=== PATIENT | male | born 1945 | race African-American/Black ===

== ENCOUNTER 2017-07-08 11:44 | Inpatient (IN) ==
[2017-07-08] MEDS ORDERED: ACETAMINOPHEN 325 MG TABLET PO PRN (12:37)
[2017-07-08] MEDS ORDERED: BISACODYL 5 MG TABLET PO PRN (12:37)
[2017-07-08] MEDS ORDERED: HYDROmorphone 2 MG/1 ML VIAL IV PRN (12:37)
[2017-07-08] MEDS ORDERED: DEXTROSE 50% 25 GM/50 ML VIAL IV PRN (12:37)
[2017-07-08] MEDS ORDERED: ALUMINUM/MAGNES/SIMETH MAX STR 30 ML UDCUP PO PRN (12:37)
[2017-07-08] MEDS ORDERED: ONDANSETRON 4 MG/2 ML VIAL IV PRN (12:37)
[2017-07-08] MEDS ORDERED: GLUCAGON 1 MG VIAL IM PRN (12:37)
[2017-07-08 14:24] LABS: Basophils % 0.2 % (0.0-0.8); Eosinophils # 0.1 10*3/uL (0.0-0.87); Hematocrit 30.3 VOL% (42.0-52.0); Hemoglobin 9.2 GM/DL (14.0-18.0); Immature Granulocytes % 1.1 %; Immature Granulocytes Absolute 0.07 #; Lymphocytes # 0.5 10*3/uL (1.4-4.0); Lymphocytes % 8.9 % (21.2-54.2); Mean Corpuscular HGB Conc 30.4 GM/DL (32-36); Mean Corpuscular Hemoglobin 31 PG (27-34); Mean Platelet Volume 11.1 FL (9.6-12.0); Monocytes # 0.6 10*3/uL (0.11-0.8); Monocytes % 10.2 % (1.7-12.7); NRBC # 0.06 10*3/uL; Neutrophils # 4.8 10*3/uL (1.4-7.4); Neutrophils % 78.6 % (38.7-73.9); Platelet Count 218 T/CUMM (130-400); Red Cell Distribution Width 19.2 % (9.3-17.3); White Blood Count 6.1 T/CUMM (4-12)
[2017-07-08 14:42] LABS: Bilirubin,Total 0.4 MG/DL (0.2-1.0); Calcium 8.5 MG/DL (8.5-10.1); Potassium 5.3 MMOL/L (3.5-5.1); Total Protein 7.3 G/DL (6.4-8.3)
[2017-07-08] MEDS ORDERED: SKIN HEALING OINT (AQUAPHOR) 50 GM TUBE TOP PRN (15:00)
[2017-07-08] MEDS ORDERED: CHLORHEXIDINE 4% SOLN 118 ML BOTTLE TOP ONE (15:20)
[2017-07-08] MEDS: SUCRALFATE 1 GM/10 ML UDCUP PO SCH ×2 (18:37→21:24)
[2017-07-08] MEDS: INSULIN REGULAR 100 UNIT/ML SUBCUT SCH ×2 (18:44→21:25)
[2017-07-08 20:27] LABS: Apearance,Urine CLEAR (Clear); Bilirubin,Urine Negative (Negative); Blood, Urine Moderate mg/dL (Negative); Glucose,Urine (UA) >=500 mg/dL (Negative); Ketones,Urine Negative (Negative); Nitrite,Urine Negative (Negative); Protein,Urine 100 MG/DL; Urine Color Straw (Yellow); Urine Specific Gravity 1.011 (1.001-1.035); Urine Urobilinogen < 2.0 EU/DL (0.2-1.0); WBC,Urine 1 /HPF (0-6)
[2017-07-08] MEDS: POTASSIUM CHLORIDE 20 MEQ TABLET PO SCH (21:24)
[2017-07-08] MEDS: DOCUSATE SODIUM 100 MG CAPSULE PO SCH (21:24)
[2017-07-08] MEDS: ACETYLCYSTEINE 600 MG CAPSULE PO SCH (21:24)
[2017-07-08] MEDS: GENTAMICIN 0.1% OINT 15 GM TUBE TOP SCH (21:25)
[2017-07-08] MEDS: ACETIC ACID 0.25% IRRIGATION 1,000 ML BOTTLE IRRIG SCH (21:25)
[2017-07-08] MEDS: SODIUM CHLORIDE 0.45% 1,000 ML IV SCH (22:45)
[2017-07-09] MEDS: MEROPENEM 1,000 MG in SYRINGE 1 EACH IV SCH ×3 (00:01→10:29)
[2017-07-09] MEDS: VANCOMYCIN INJ 1,500 MG in SODIUM CHLORIDE 0.9% 500 ML IV SCH ×2 (00:13→19:22)
[2017-07-09] MEDS: SODIUM CHLORIDE 0.45% 1,000 ML IV SCH ×2 (04:53→18:01)
[2017-07-09] MEDS: INSULIN REGULAR 100 UNIT/ML SUBCUT SCH ×4 (08:36→21:19)
[2017-07-09] MEDS ORDERED: LEVOFLOXACIN 500 MG TABLET PO SCH (09:00)
[2017-07-09] MEDS ORDERED: SILVER SULFADIAZINE 1% CREAM 25 GM TUBE TOP SCH (09:00)
[2017-07-09] MEDS: ACETYLCYSTEINE 600 MG CAPSULE PO SCH ×2 (10:27→21:18)
[2017-07-09] MEDS: POLYETHYLENE GLYCOL POWDER 17 GM PACK PO SCH (10:27)
[2017-07-09] MEDS: SUCRALFATE 1 GM/10 ML UDCUP PO SCH ×4 (10:28→21:19)
[2017-07-09] MEDS: ENOXAPARIN 40 MG/0.4 ML SYRINGE SUBCUT SCH (10:28)
[2017-07-09] MEDS: FUROSEMIDE 40 MG TABLET PO SCH (10:28)
[2017-07-09] MEDS: TAMSULOSIN 0.4 MG CAPSULE PO SCH (10:28)
[2017-07-09] MEDS: DOCUSATE SODIUM 100 MG CAPSULE PO SCH ×2 (10:28→21:18)
[2017-07-09] MEDS: GENTAMICIN 0.1% OINT 15 GM TUBE TOP SCH ×3 (10:29→21:19)
[2017-07-09] MEDS: ACETIC ACID 0.25% IRRIGATION 1,000 ML BOTTLE IRRIG SCH ×2 (10:29→21:19)
[2017-07-09] MEDS: POTASSIUM CHLORIDE 20 MEQ TABLET PO SCH ×2 (10:29→21:16)
[2017-07-09] MEDS: metOLazone 5 MG TABLET PO SCH (10:30)
[2017-07-09] MEDS: PANTOPRAZOLE 40 MG TABLET PO SCH (10:30)
[2017-07-09] MEDS: BACITRACIN OINT 0.9 GM PACK TOP SCH (11:35)
[2017-07-09] MEDS: PIPERACILLIN/TAZOBACTAM 2,250 MG in SODIUM CHLORIDE 0.9% 100 ML IV SCH ×2 (15:20→23:36)
[2017-07-10 05:31] LABS: Basophils % 0.2 % (0.0-0.8); Eosinophils # 0.1 10*3/uL (0.0-0.87); Hematocrit 24.9 VOL% (42.0-52.0); Hemoglobin 7.4 GM/DL (14.0-18.0); Immature Granulocytes % 0.8 %; Immature Granulocytes Absolute 0.04 #; Lymphocytes # 0.3 10*3/uL (1.4-4.0); Lymphocytes % 6.2 % (21.2-54.2); Mean Corpuscular HGB Conc 29.7 GM/DL (32-36); Mean Corpuscular Hemoglobin 31 PG (27-34); Mean Corpuscular Volume 103.3 FL (87-102); Mean Platelet Volume 11.3 FL (9.6-12.0); Monocytes # 0.9 10*3/uL (0.11-0.8); Monocytes % 17.4 % (1.7-12.7); NRBC # 0.04 10*3/uL; Neutrophils # 3.7 10*3/uL (1.4-7.4); Neutrophils % 74.4 % (38.7-73.9); Platelet Count 150 T/CUMM (130-400); Red Blood Count 2.41 MC/CUMM (3.8-5.5); Red Cell Distribution Width 18.7 % (9.3-17.3)
[2017-07-10 05:56] LABS: Eosinophils 1 % (0-10); Giant Platelets Few; Hypochromasia 1+; Lymphocytes 7 % (20-55); Macrocytosis Slight; Nucleated Red Blood Cells 1 (0-5); Ovalocytes Slight; Platelet Estimate Normal; Segmented Neutrophils 82 % (50-85); Total Cells Counted 100
[2017-07-10 05:58] LABS: Calcium 7.5 MG/DL (8.5-10.1); Potassium 4.1 MMOL/L (3.5-5.1)
[2017-07-10] MEDS: PIPERACILLIN/TAZOBACTAM 2,250 MG in SODIUM CHLORIDE 0.9% 100 ML IV SCH ×3 (06:09→22:22)
[2017-07-10] MEDS: INSULIN REGULAR 100 UNIT/ML SUBCUT SCH ×4 (09:04→21:10)
[2017-07-10] MEDS: POLYETHYLENE GLYCOL POWDER 17 GM PACK PO SCH (09:52)
[2017-07-10] MEDS: SUCRALFATE 1 GM/10 ML UDCUP PO SCH ×4 (09:52→21:09)
[2017-07-10] MEDS: metOLazone 5 MG TABLET PO SCH (09:53)
[2017-07-10] MEDS: POTASSIUM CHLORIDE 20 MEQ TABLET PO SCH ×2 (09:53→21:10)
[2017-07-10] MEDS: DOCUSATE SODIUM 100 MG CAPSULE PO SCH ×2 (09:53→21:09)
[2017-07-10] MEDS: ENOXAPARIN 40 MG/0.4 ML SYRINGE SUBCUT SCH (09:53)
[2017-07-10] MEDS: PANTOPRAZOLE 40 MG TABLET PO SCH (09:53)
[2017-07-10] MEDS: ACETYLCYSTEINE 600 MG CAPSULE PO SCH ×2 (09:53→21:09)
[2017-07-10] MEDS: FUROSEMIDE 40 MG TABLET PO SCH (09:53)
[2017-07-10] MEDS: TAMSULOSIN 0.4 MG CAPSULE PO SCH (09:53)
[2017-07-10] MEDS: SODIUM CHLORIDE 0.45% 1,000 ML IV SCH (11:45)
[2017-07-10] MEDS: GENTAMICIN 0.1% OINT 15 GM TUBE TOP SCH ×3 (12:08→21:10)
[2017-07-10] MEDS: ACETIC ACID 0.25% IRRIGATION 1,000 ML BOTTLE IRRIG SCH ×2 (12:08→21:09)
[2017-07-10] MEDS: BACITRACIN OINT 0.9 GM PACK TOP SCH (12:08)
[2017-07-10] MEDS: VANCOMYCIN INJ 1,500 MG in SODIUM CHLORIDE 0.9% 500 ML IV SCH (12:17)
[2017-07-11] MEDS: VANCOMYCIN INJ 1,500 MG in SODIUM CHLORIDE 0.9% 500 ML IV SCH (05:55)
[2017-07-11 06:22] LABS: Basophils % 0.2 % (0.0-0.8); Eosinophils # 0.1 10*3/uL (0.0-0.87); Eosinophils % 2.1 % (0.00-10.9); Hematocrit 22.7 VOL% (42.0-52.0); Hemoglobin 6.8 GM/DL (14.0-18.0); Immature Granulocytes % 0.7 %; Immature Granulocytes Absolute 0.03 #; Lymphocytes # 0.4 10*3/uL (1.4-4.0); Mean Corpuscular Hemoglobin 31 PG (27-34); Mean Corpuscular Volume 102.3 FL (87-102); Mean Platelet Volume 10.9 FL (9.6-12.0); Monocytes # 0.8 10*3/uL (0.11-0.8); Monocytes % 18.2 % (1.7-12.7); NRBC # 0.03 10*3/uL; Neutrophils % 69.8 % (38.7-73.9); Platelet Count 138 T/CUMM (130-400); Red Blood Count 2.22 MC/CUMM (3.8-5.5); White Blood Count 4.2 T/CUMM (4-12)
[2017-07-11] MEDS: SODIUM CHLORIDE 0.45% 1,000 ML IV SCH ×2 (06:22→16:16)
[2017-07-11 06:42] LABS: Eosinophils 3 % (0-10); Lymphocytes 6 % (20-55); Platelet Estimate Decreased; Polychromasia Slight; Segmented Neutrophils 79 % (50-85); Total Cells Counted 100
[2017-07-11 06:50] LABS: Calcium 7.7 MG/DL (8.5-10.1); Osmolality,Calculated 294.7 MOS/KG (273-304); Potassium 3.4 MMOL/L (3.5-5.1)
[2017-07-11] MEDS ORDERED: SODIUM CHLORIDE 0.9% 1,000 ML IV PRN (08:21)
[2017-07-11 08:33] LABS: % Iron Saturation 21.7 % (18-50)
[2017-07-11] MEDS: INSULIN REGULAR 100 UNIT/ML SUBCUT SCH ×4 (09:28→21:43)
[2017-07-11] MEDS: FUROSEMIDE 40 MG TABLET PO SCH (09:28)
[2017-07-11] MEDS: metOLazone 5 MG TABLET PO SCH (09:29)
[2017-07-11] MEDS: PIPERACILLIN/TAZOBACTAM 2,250 MG in SODIUM CHLORIDE 0.9% 100 ML IV SCH ×2 (09:52→16:56)
[2017-07-11] MEDS: SUCRALFATE 1 GM/10 ML UDCUP PO SCH ×4 (09:53→21:42)
[2017-07-11] MEDS: DOCUSATE SODIUM 100 MG CAPSULE PO SCH ×2 (09:53→21:42)
[2017-07-11] MEDS: PANTOPRAZOLE 40 MG TABLET PO SCH (09:54)
[2017-07-11] MEDS: ACETYLCYSTEINE 600 MG CAPSULE PO SCH ×2 (09:54→21:41)
[2017-07-11] MEDS: TAMSULOSIN 0.4 MG CAPSULE PO SCH (10:04)
[2017-07-11] MEDS: PENTOXIFYLLINE 400 MG TABLET PO SCH ×3 (10:04→21:42)
[2017-07-11] MEDS: ENOXAPARIN 40 MG/0.4 ML SYRINGE SUBCUT SCH (10:05)
[2017-07-11] MEDS: POTASSIUM CHLORIDE 20 MEQ TABLET PO SCH ×2 (10:05→21:42)
[2017-07-11] MEDS: POLYETHYLENE GLYCOL POWDER 17 GM PACK PO SCH (10:08)
[2017-07-11] MEDS: ACETIC ACID 0.25% IRRIGATION 1,000 ML BOTTLE IRRIG SCH ×2 (12:00→21:19)
[2017-07-11] MEDS: BACITRACIN OINT 0.9 GM PACK TOP SCH (12:00)
[2017-07-11] MEDS: GENTAMICIN 0.1% OINT 15 GM TUBE TOP SCH ×2 (16:16→21:20)
[2017-07-11 23:43] LABS: Hematocrit 30.2 VOL% (42.0-52.0); Hemoglobin 9.5 GM/DL (14.0-18.0)
[2017-07-12] MEDS: PIPERACILLIN/TAZOBACTAM 2,250 MG in SODIUM CHLORIDE 0.9% 100 ML IV SCH ×2 (02:35→14:52)
[2017-07-12] MEDS: SODIUM CHLORIDE 0.45% 1,000 ML IV SCH ×2 (02:53→12:05)
[2017-07-12 05:15] LABS: Basophils % 0.1 % (0.0-0.8); Eosinophils # 0.1 10*3/uL (0.0-0.87); Eosinophils % 1.1 % (0.00-10.9); Hematocrit 31.4 VOL% (42.0-52.0); Hemoglobin 9.9 GM/DL (14.0-18.0); Immature Granulocytes % 0.4 %; Immature Granulocytes Absolute 0.03 #; Lymphocytes # 0.4 10*3/uL (1.4-4.0); Lymphocytes % 4.3 % (21.2-54.2); Mean Corpuscular HGB Conc 31.5 GM/DL (32-36); Mean Corpuscular Hemoglobin 31 PG (27-34); Mean Corpuscular Volume 98.1 FL (87-102); Mean Platelet Volume 10.5 FL (9.6-12.0); Monocytes # 1.2 10*3/uL (0.11-0.8); Monocytes % 15.3 % (1.7-12.7); NRBC # 0.03 10*3/uL; Neutrophils # 6.4 10*3/uL (1.4-7.4); Neutrophils % 78.8 % (38.7-73.9); Platelet Count 128 T/CUMM (130-400); Red Cell Distribution Width 17.3 % (9.3-17.3); White Blood Count 8.1 T/CUMM (4-12)
[2017-07-12 05:56] LABS: Band Neutrophils 1 % (0-10); Lymphocytes 3 % (20-55); Myelocytes 1 %; Ovalocytes Slight; Segmented Neutrophils 82 % (50-85); Total Cells Counted 100
[2017-07-12 05:57] LABS: Macrocytosis Slight; Platelet Estimate Adequate
[2017-07-12 05:59] LABS: Calcium 7.8 MG/DL (8.5-10.1); Osmolality,Calculated 291.8 MOS/KG (273-304); Potassium 3.5 MMOL/L (3.5-5.1)
[2017-07-12] MEDS: INSULIN REGULAR 100 UNIT/ML SUBCUT SCH ×4 (09:10→20:40)
[2017-07-12] MEDS: ENOXAPARIN 40 MG/0.4 ML SYRINGE SUBCUT SCH (09:45)
[2017-07-12] MEDS: POTASSIUM CHLORIDE 20 MEQ TABLET PO SCH ×2 (09:47→22:21)
[2017-07-12] MEDS: PENTOXIFYLLINE 400 MG TABLET PO SCH ×3 (09:47→22:21)
[2017-07-12] MEDS: ACETYLCYSTEINE 600 MG CAPSULE PO SCH ×2 (09:47→22:21)
[2017-07-12] MEDS: DOCUSATE SODIUM 100 MG CAPSULE PO SCH ×2 (09:47→22:21)
[2017-07-12] MEDS: PANTOPRAZOLE 40 MG TABLET PO SCH (09:49)
[2017-07-12] MEDS: TAMSULOSIN 0.4 MG CAPSULE PO SCH (09:49)
[2017-07-12] MEDS: FUROSEMIDE 40 MG TABLET PO SCH (09:50)
[2017-07-12] MEDS: SUCRALFATE 1 GM/10 ML UDCUP PO SCH ×4 (09:50→22:22)
[2017-07-12] MEDS: POLYETHYLENE GLYCOL POWDER 17 GM PACK PO SCH (09:51)
[2017-07-12] MEDS: metOLazone 5 MG TABLET PO SCH (09:52)
[2017-07-12] MEDS: BACITRACIN OINT 0.9 GM PACK TOP SCH (13:56)
[2017-07-12] MEDS: GENTAMICIN 0.1% OINT 15 GM TUBE TOP SCH ×3 (13:56→22:31)
[2017-07-12] MEDS: ACETIC ACID 0.25% IRRIGATION 1,000 ML BOTTLE IRRIG SCH ×2 (13:56→20:38)
[2017-07-13] MEDS: PIPERACILLIN/TAZOBACTAM 2,250 MG in SODIUM CHLORIDE 0.9% 100 ML IV SCH ×5 (00:49→19:48)
[2017-07-13] MEDS: SODIUM CHLORIDE 0.45% 1,000 ML IV SCH ×5 (00:53→22:29)
[2017-07-13] MEDS: INSULIN REGULAR 100 UNIT/ML SUBCUT SCH ×4 (08:54→21:03)
[2017-07-13] MEDS: ACETYLCYSTEINE 600 MG CAPSULE PO SCH ×2 (09:08→21:03)
[2017-07-13] MEDS: PENTOXIFYLLINE 400 MG TABLET PO SCH ×3 (09:09→21:03)
[2017-07-13] MEDS: POTASSIUM CHLORIDE 20 MEQ TABLET PO SCH ×2 (09:09→21:03)
[2017-07-13] MEDS: PANTOPRAZOLE 40 MG TABLET PO SCH (09:10)
[2017-07-13] MEDS: TAMSULOSIN 0.4 MG CAPSULE PO SCH (09:10)
[2017-07-13] MEDS: DOCUSATE SODIUM 100 MG CAPSULE PO SCH ×2 (09:11→21:03)
[2017-07-13] MEDS: FUROSEMIDE 40 MG TABLET PO SCH (09:11)
[2017-07-13] MEDS: POLYETHYLENE GLYCOL POWDER 17 GM PACK PO SCH (09:12)
[2017-07-13] MEDS: SUCRALFATE 1 GM/10 ML UDCUP PO SCH ×4 (09:13→21:03)
[2017-07-13] MEDS: ENOXAPARIN 40 MG/0.4 ML SYRINGE SUBCUT SCH (09:18)
[2017-07-13] MEDS: metOLazone 5 MG TABLET PO SCH (10:13)
[2017-07-13] MEDS: BACITRACIN OINT 0.9 GM PACK TOP SCH (12:20)
[2017-07-13] MEDS: GENTAMICIN 0.1% OINT 15 GM TUBE TOP SCH ×3 (12:20→21:03)
[2017-07-13] MEDS: ACETIC ACID 0.25% IRRIGATION 1,000 ML BOTTLE IRRIG SCH ×2 (12:20→21:03)
[2017-07-14] MEDS: PIPERACILLIN/TAZOBACTAM 2,250 MG in SODIUM CHLORIDE 0.9% 100 ML IV SCH ×2 (04:29→12:22)
[2017-07-14 05:36] LABS: Basophils % 0.2 % (0.0-0.8); Eosinophils # 0.1 10*3/uL (0.0-0.87); Eosinophils % 2.8 % (0.00-10.9); Hematocrit 28.7 VOL% (42.0-52.0); Hemoglobin 9.3 GM/DL (14.0-18.0); Immature Granulocytes % 0.4 %; Immature Granulocytes Absolute 0.02 #; Lymphocytes # 0.4 10*3/uL (1.4-4.0); Lymphocytes % 8.3 % (21.2-54.2); Mean Corpuscular HGB Conc 32.4 GM/DL (32-36); Mean Corpuscular Hemoglobin 31 PG (27-34); Mean Corpuscular Volume 94.7 FL (87-102); Mean Platelet Volume 10.5 FL (9.6-12.0); Monocytes % 20.9 % (1.7-12.7); Neutrophils # 3.2 10*3/uL (1.4-7.4); Neutrophils % 67.4 % (38.7-73.9); Platelet Count 127 T/CUMM (130-400); Red Blood Count 3.03 MC/CUMM (3.8-5.5); Red Cell Distribution Width 16.9 % (9.3-17.3); White Blood Count 4.7 T/CUMM (4-12)
[2017-07-14 06:00] LABS: Calcium 8.1 MG/DL (8.5-10.1); Osmolality,Calculated 284.4 MOS/KG (273-304); Potassium 3.3 MMOL/L (3.5-5.1)
[2017-07-14 06:36] LABS: Band Neutrophils 2 % (0-10); Eosinophils 2 % (0-10); Hypochromasia Slight; Lymphocytes 4 % (20-55); Platelet Estimate Decreased; Segmented Neutrophils 80 % (50-85); Total Cells Counted 100
[2017-07-14] MEDS: SUCRALFATE 1 GM/10 ML UDCUP PO SCH ×2 (07:07→12:22)
[2017-07-14] MEDS: ACETYLCYSTEINE 600 MG CAPSULE PO SCH (08:46)
[2017-07-14] MEDS: FUROSEMIDE 40 MG TABLET PO SCH (08:47)
[2017-07-14] MEDS: PENTOXIFYLLINE 400 MG TABLET PO SCH ×2 (08:47→14:52)
[2017-07-14] MEDS: PANTOPRAZOLE 40 MG TABLET PO SCH (08:47)
[2017-07-14] MEDS: POTASSIUM CHLORIDE 20 MEQ TABLET PO SCH (08:47)
[2017-07-14] MEDS: POLYETHYLENE GLYCOL POWDER 17 GM PACK PO SCH (08:47)
[2017-07-14] MEDS: ENOXAPARIN 40 MG/0.4 ML SYRINGE SUBCUT SCH (08:47)
[2017-07-14] MEDS: metOLazone 5 MG TABLET PO SCH (08:47)
[2017-07-14] MEDS: INSULIN REGULAR 100 UNIT/ML SUBCUT SCH ×2 (08:48→12:22)
[2017-07-14] MEDS: DOCUSATE SODIUM 100 MG CAPSULE PO SCH (08:48)
[2017-07-14] MEDS: TAMSULOSIN 0.4 MG CAPSULE PO SCH (08:48)
[2017-07-14] MEDS: ACETIC ACID 0.25% IRRIGATION 1,000 ML BOTTLE IRRIG SCH (10:03)
[2017-07-14] MEDS: BACITRACIN OINT 0.9 GM PACK TOP SCH (10:03)
[2017-07-14] MEDS: GENTAMICIN 0.1% OINT 15 GM TUBE TOP SCH ×2 (10:03→14:54)
[2017-07-14 17:47] VITALS: BP 103/67
[2017-07-15] MEDS ORDERED: VANCOMYCIN INJ 1,500 MG in SODIUM CHLORIDE 0.9% 500 ML IV SCH (09:00)
== END 2017-07-14 18:25 | disposition home health service (06) | DRG 638 ==
LOC: N.3E 13:16
PROVIDERS: ADMIT Specialist; ATTEND Specialist